=== PATIENT | female | born 1985 | race African-American/Black ===

== ENCOUNTER 2017-10-09 21:45 | Emergency (ER) | payer SELFPAY ==
[~2017-10-09] VITALS: Ht 152.4 cm; Wt 73.5 kg
[2017-10-09 21:50] VITALS: BP 167/92
[2017-10-09 22:16] LABS: APPEARANCE,URINE SL CLOUDY (CLEAR); BILIRUBIN,URINE NEGATIVE (NEGATIVE); BLOOD, URINE 2+ Ery/uL (NEGATIVE); COLOR,URINE YELLOW (YELLOW); KETONES,URINE TRACE (NEGATIVE); LEUKOCYTE ESTERASE ,URINE TRACE (NEGATIVE); NITRITE, URINE POSITIVE (NEGATIVE); PH,URINE 6.5 (5.0-8.0); PROTEIN,URINE NEGATIVE (NEGATIVE); UGLUCOSE NEGATIVE (NEGATIVE); UROBILINOGEN,URINE 0.2 EU/dL (0.2)
[2017-10-09 22:21] LABS: BACTERIA,URINE Many /HPF (None Seen); SQUAMOUS EPITHELIAL CELL,UR Many /HPF (None Seen); WBC,URINE 21-50 /HPF (0-3)
[2017-10-09] MEDS ORDERED: PHENAZOPYRIDINE HCL 200 MG TABLET PO STA (22:49)
[2017-10-09] MEDS ORDERED: CEPHALEXIN MONOHYDRATE 500 MG CAPSULE PO STA (22:49)
[2017-10-09] MEDS ORDERED: IBUPROFEN 600 MG TABLET PO ONE ×2 (23:00→23:01)
[2017-10-09] MEDS ORDERED: CEPHALEXIN MONOHYDRATE 500 MG CAPSULE PO ONE (23:00)
[2017-10-09] MEDS ORDERED: PHENAZOPYRIDINE HCL 200 MG TABLET ONE (23:01)
== END 2017-10-09 23:11 | disposition home or self-care (01) ==
LOC: ER 21:45
DX: N39.0 Urinary tract infection, site not specified (principal); F32.9 Major depressive disorder, single episode, unspecified; F29 Unspecified psychosis not due to a substance or known physiological condition
CPT/HCPCS: 81000-TC; 84703-TC; A4606; Z7610

== ENCOUNTER 2020-07-26 13:56 | Emergency (ER) | payer OTHER ==
[~2020-07-26] VITALS: Ht 167.6 cm; Wt 72.6 kg
--- NOTE | 2020-07-26 13:56 | NUR ---
[id number], PER EMS PT HAD AN ARGUMENT WITH , NOW C/O HEADACHE. PT IS AAOX4, NOT IN RESPIRATORY DISTRESS, V/S STABLE, KEPT RESTED AND COMFORTABLE. WILL CONTINUE TO MONITOR.
--- NOTE | 2020-07-26 14:17 | NUR ---
PT SEEN AND EXAMINED BY .
--- NOTE | 2020-07-26 14:24 | NUR ---
PT IS WHEELED TO CT SCAN VIA [facility].
[2020-07-26] MEDS ORDERED: diphenhydrAMINE HCL 50 MG/ML VIAL IM/IV ONE (14:30)
[2020-07-26] MEDS ORDERED: KETOROLAC TROMETHAMINE INJ 60 MG/2 ML VIAL IM ONE ×2 (14:30→14:31)
[2020-07-26] MEDS ORDERED: diphenhydrAMINE HCL 50 MG/ML VIAL ONE (14:31)
--- NOTE | 2020-07-26 14:36 | NUR ---
PT SIGNED THE WAIVER STATING SHE IS NOT .
--- NOTE | 2020-07-26 16:08 | NUR ---
Patient given written and verbal discharge instructions. Patient verbalizes understanding of instructions. Patient is ambulatory with steady gait. Refuses offer of [facility] placement. Patient given list of available shelters in surrounding area.
[2020-07-26 16:10] VITALS: BP 131/81
== END 2020-07-26 16:10 | disposition home or self-care (01) ==
LOC: ER 13:56
DX: R51.9 Headache, unspecified (principal); Z87.440 Personal history of urinary (tract) infections; Z59.0 Homelessness
CPT/HCPCS: 70450; 96372 ×2; 99284; J1200; J1885